=== PATIENT | male | born 1980 | race American Indian/Alaskan Native ===

== ENCOUNTER 2017-07-23 16:11 | Emergency (ER) | payer BC ==
[2017-07-23 16:25] VITALS: BP 137/82
--- NOTE | 2017-07-23 17:44 | XRay Report ---
FINAL REPORT EXAM: XR FINGER(S) 1V RT HISTORY: trauma, pain to 5th finger, right hand. TECHNIQUE: AP, lateral, and oblique views of the right 5th finger PRIORS: None. FINDINGS: There is soft tissue swelling around the 5th proximal interphalangeal joint. There is no evidence for acute fracture or dislocation. No radiopaque foreign bodies are seen. Bony mineralization is normal and joint spaces are maintained. IMPRESSION: No acute bony abnormality noted. Soft tissue swelling around the 5th proximal interphalangeal joint.
== END 2017-07-23 21:21 | disposition left against medical advice (07) ==
LOC: ED 16:11
DX: M79.644 Pain in right finger(s) (principal); Z53.21 Procedure and treatment not carried out due to patient leaving prior to being seen by health care provider

== ENCOUNTER 2017-07-24 12:57 | Emergency (ER) | payer BC ==
[2017-07-24 13:14] VITALS: BP 116/80
[2017-07-24] MEDS ORDERED: MOTRIN PO ONE (17:54)
--- NOTE | 2017-07-24 18:09 | Emergency Department Report ---
HPI - General Chief Complaint: Extremity Injury, Upper Time Seen by Provider: 07/24/17 17:36 - HPI HPI: The patient is a 37-year-old male presents for evaluation of pain to the left pinky. He states that he injured it while playing football approximately 4 weeks ago. He states that he dislocated at the time and it relocated it himself. He complains of mild achy pain to the left fifth PIP for the past 4 weeks, exacerbated with attempting flexion of the pinky at the PIP joint. ED Past Medical Hx - Past Medical History Previous Medical History?: No - Surgical History Past Surgical History?: No - Social History Smoking Status: Current Every Day Smoker Substance Use Type: None - Medications Home Medications: Home Medications Medication Instructions Recorded Confirmed Last Taken Type Ibuprofen [Motrin] 600 mg PO Q8H PRN #30 tablet 07/24/17 Unknown Rx traMADol [Ultram 50 MG tab] 50 mg PO Q6HR PRN #10 tablet 07/24/17 Unknown Rx ED Review of Systems ROS: Stated complaint: FINGER INJURY Other details as noted in HPI Constitutional: denies: fever ENT: denies: throat pain Cardiovascular: denies: chest pain Gastrointestinal: denies: abdominal pain, nausea, vomiting Genitourinary: discharge Musculoskeletal: arthralgia. denies: back pain Skin: denies: rash Physical Exam - Physical Exam Vital Signs: Vital Signs 07/24/17 13:09 Temperature 98.7 F Pulse Rate 55 L Respiratory 14 Rate Blood Pressure 116/80 O2 Sat by Pulse 99 Oximetry Physical Exam: General: well-nourished, well-developed, no acute distress Head: Normocephalic, atraumatic Eyes: normal sclera ENT: Mucous membranes are pink and moist Neck: trachea midline, neck supple, No neck stiffness, no cervical adenopathy Respiratory: Breath sounds equal bilaterally, no wheezing, rales, or rhonchi Cardio: S1 and S2 present, no murmurs, rubs, gallops, capillary refill is brisk Musc: left fifth pip swollen, tender to touch, no redness, warmth, fluctuance, or crepitus, flexion and extension at the PIP intact, Skin: No rash ED Course Vital Signs 07/24/17 13:09 Temperature 98.7 F Pulse Rate 55 L Respiratory 14 Rate Blood Pressure 116/80 O2 Sat by Pulse 99 Oximetry ED Medical Decision Making - Medical Decision Making The patient was seen and examined by myself. The patient is given pain medicine. X-ray of the left little finger is negative for acute fracture dislocation. The patient was reevaluated and reported that their symptoms were markedly improved. The patient is stable for discharge with outpatient follow- up. The patient is given follow-up and return instructions. The patient expressed understanding and agreed with the plan. The patient is discharged in stable condition. Critical care attestation.: If time is entered above; I have spent that time in minutes in the direct care of this critically ill patient, excluding procedure time. ED Disposition Clinical Impression: Arthritis of finger of left hand Dislocation of interphalangeal joint of left little finger Qualifiers: Encounter type: subsequent encounter Qualified Code(s): S63.277D - Dislocation of unspecified interphalangeal joint of left little finger, subsequent encounter Disposition: TO HOME OR SELFCARE Is pt being admited?: No Does the pt Need Aspirin: No Condition: Stable Instructions: Finger Dislocation (ED), Arthralgia (ED) Referrals: ABHI WHITLOCK MD [Staff Physician] - 3-5 Days [facility] [Outside] - 3-5 Days Time of Disposition: 18:08
== END 2017-07-24 18:17 | disposition home or self-care (01) ==
LOC: ED 12:57
DX: S63.277D Dislocation of unspecified interphalangeal joint of left little finger, subsequent encounter (principal); M19.90 Unspecified osteoarthritis, unspecified site; F17.200 Nicotine dependence, unspecified, uncomplicated; X58.XXXD Exposure to other specified factors, subsequent encounter
CPT/HCPCS: 99282